=== PATIENT | male | born 1945 | race Caucasian/White ===

== ENCOUNTER 2017-03-12 09:29 | Inpatient (IN) | payer MEDICARE, OTHER ==
[~2017-03-12] VITALS: Ht 170.2 cm; Wt 121.0 kg
[2017-03-12] MEDS ORDERED: IBUP200T2 PO (10:01)
--- NOTE | 2017-03-14 11:19 | MH ---
cc: JAXON ROSARIO DC, ALEX MD KHANNA, ROHIT K. M.D. KANDAVANAM, RAJ MD DATE OF ADMISSION: 03/15/2017 ADMITTING DIAGNOSIS Lumbar degenerative disc disease. HISTORY OF PRESENT ILLNESS This is a 71-year-old male who initially presented to us in June 2016 with complaints of low back pain. He was seen for a follow-up in February 2017 with progressively worsening symptoms. He states he has had low back pain and leg pain for the last five years. He has been to pain management and has had three injections which did not help. He states the pain radiates into the left more than right leg and into the lateral thighs and posterior thigh. He states the pain does not extend much past the knees. He denies any paresthesias in his lower extremities. He states with walking he occasionally does not feel secure. He states he feels he has to lean forward to help with his pain. Walking more than a block is difficult for him. He states he has been urinating more frequently but denies any bowel or bladder incontinence. His pain improves with laying down. He states that the pain is affecting his life at this point, is unable to walk as far as he wants and his activity status has been restricted. Because of this he is requesting that we proceed with surgical intervention. PAST MEDICAL HISTORY Sleep apnea, uses a CPAP machine. PAST SURGICAL HISTORY 1. Tonsillectomy in 1952. 2. Hand surgery. 3. Cervical spine surgery in 2010. MEDICATIONS Current medication is Ibuprofen 400 mg q.6h. p.r.n. pain; this was stopped prior to surgical intervention. ALLERGIES PENICILLIN. SOCIAL HISTORY He drinks 0-2 drinks of alcohol per day. Denies any substance abuse. He was a former smoker, quit in 1984. FAMILY HISTORY Noncontributory. REVIEW OF SYSTEMS CONSTITUTIONAL: Denies any fever or chills. EARS, NOSE, AND THROAT: Positive for sinus drainage, hearing loss and tinnitus. CARDIOVASCULAR: Denies any chest pain or palpitations. RESPIRATORY: No cough or shortness of breath. GASTROINTESTINAL: No nausea, vomiting, abdominal pain. MUSCULOSKELETAL: Positive for low back pain and bilateral leg pain. NEUROLOGIC: No difficulty with speech or memory. INTEGUMENTARY: No rashes or pruritus. GENITOURINARY: No polyuria or polydipsia. HEMATOLOGIC: No bruising or bleeding tendencies. PHYSICAL EXAMINATION HEAD: Normocephalic, atraumatic. NECK: Supple. No carotid bruits heard on auscultation. LUNGS: Clear to auscultation bilaterally. HEART: Regular rate and rhythm, normal S1, S2. ABDOMEN: Soft, nontender. Positive bowel sounds. SKIN: No cyanosis or erythema. MUSCULOSKELETAL: He has 5/5 strength in the lower extremities. He has weakness in the right hamstring from a history of a torn hamstring. He ambulates without any assistive device. Lumbar extension exacerbates his pain. NEUROLOGIC: He is awake, alert and oriented. Cranial nerves II-XII appear grossly intact. His speech is fluent. Comprehension is good. IMAGING MRI of the lumbar spine reveals a grade I, L4-L5 anterolisthesis with pars defect and severe degenerative disc disease with disc height collapse along with facet arthropathy and severe foraminal stenosis. There is also severe L3-L4 degenerative disc disease with disc height collapse and moderate foraminal stenosis. IMPRESSION A 71-year-old male with history of chronic low back pain and failed conservative treatment measures and a very restricted activity status. He has severe L3-L4 and L4-L5 disc degeneration with complete disc height collapse along with a grade I/II spondylolisthesis with pars defect at L4-L5 as well as multilevel facet arthropathy and foraminal stenosis. PLAN We have discussed treatment options with the patient which include continued conservative treatment measures versus surgical intervention. The patient states that he has tried conservative treatment measures and he is currently miserable with this level of discomfort and he is requesting that we proceed with surgical intervention. We have discussed with him an L3-L4 and L4-L5 transforaminal interbody fusion with pedicle screw fixation. The procedure as well as the risk, benefit, alternative and recovery time were explained in great detail with the patient. We have discussed the risks involved with surgery include but are not limited to bleeding, infection, muscle weakness, voice hoarseness, difficulty swallowing, heart attack, stroke, blood clots, non-fusion scar tissue formation among others. The patient states that he understands the procedure as well as the risks involved and he is requesting that we proceed and is therefore scheduled accordingly. Dictated by: Elie Peterson PA-C MD GURJIT Crespo /10:44 AM /11:04 AM
[2017-03-15] MEDS ORDERED: INSULIN HUMAN REGULAR 1,000 UNITS/10 ML VIAL SQ PRN (06:45)
[2017-03-15] MEDS ORDERED: METOPROLOL TARTRATE 25 MG TAB PO PRN (06:45)
[2017-03-15] MEDS ORDERED: LACTATED RINGER'S 1000 ML IV PRN (06:45)
[2017-03-15] MEDS ORDERED: CHLORHEXIDINE GLUCONATE 2 % 1 PACK (2 CLOTHS) TOPICAL PRN (06:45)
[2017-03-15] MEDS ORDERED: SODIUM CHLORID 0.9% 500 ML IV PRN (06:45)
[2017-03-15] MEDS ORDERED: POVIDONE IODINE 5% (ANTISEPSIS KIT) 4 APPLICATIONS EACH NARE PRN (06:45)
[2017-03-15] MEDS ORDERED: SODIUM CHLOR 0.9% 1000 ML INJ 1,000 ML IV SCH (06:45)
[2017-03-15] MEDS ORDERED: VANCOMYCIN HCL 1000 MG ON-CALL/NS 250 ML IV SCH ×2 (06:45)
[2017-03-15 06:46] VITALS: BP 181/83; PULSE 71; RESP 18; TEMP 98.8; O2SAT 97
[2017-03-15] MEDS ORDERED: THROMBIN (TOPICAL) 5,000 UNIT VIAL ONE ×3 (07:36→11:31)
[2017-03-15] MEDS ORDERED: BUPIVACAINE/EPINEPHRINE 0.5% 50 ML VIAL ONE (07:36)
[2017-03-15] MEDS ORDERED: GELFOAM SIZE 100 ONE (07:36)
[2017-03-15] MEDS ORDERED: ACETAMINOPHEN 1000 MG/100 ML VIAL IV ONE (07:42)
[2017-03-15] MEDS ORDERED: FAMOTIDINE 20 MG/2 ML VIAL ONE (07:43)
[2017-03-15] MEDS ORDERED: fentaNYL CITRATE 250 MCG/5 ML AMP ONE (07:43)
[2017-03-15] MEDS ORDERED: MIDAZOLAM HCL 2 MG/2 ML VIAL ONE (07:43)
[2017-03-15] MEDS ORDERED: ARTIFICIAL TEARS OPTH OINT 3.5 APPLIC/3.5 GM TUBO ONE (07:43)
[2017-03-15] MEDS: VANCOMYCIN HCL 1000 MG VIAL ONE ×2 (09:30→12:09)
[2017-03-15] MEDS ORDERED: ePHEDrine/NS 25 MG/5 ML SYR IV ONE ×2 (12:00→13:42)
[2017-03-15] MEDS ORDERED: DO NOT ADM ANY ANTICOAGULANT DRUGS PRN (12:34)
[2017-03-15] MEDS ORDERED: CALCIUM GLUCONATE INJ 1 GM in SODIUM CHLORIDE 0.9% INJ 100 ML IV PRN (12:45)
[2017-03-15] MEDS ORDERED: POTASSIUM CHLOR 20 MEQ PREMIX 100 ML IV PRN (12:45)
[2017-03-15] MEDS ORDERED: RESP: ALBUTEROL 2.5 MG/3 ML NEB (PRN) NEB (12:45)
[2017-03-15] MEDS ORDERED: ZOLPIDEM TARTRATE 5 MG TAB PO PRN (12:45)
[2017-03-15] MEDS ORDERED: MENTHOL LOZENGE BUCCAL PRN (12:45)
[2017-03-15] MEDS ORDERED: NALOXONE HCL 0.4 MG/ML AMP IV PRN (12:45)
[2017-03-15] MEDS ORDERED: METOCLOPRAMIDE HCL 10 MG/2 ML VIAL IVS PRN (12:45)
[2017-03-15] MEDS ORDERED: ALUMINUM/MAGNESIUM/SIMETH 30 ML CUP PO PRN (12:45)
[2017-03-15] MEDS ORDERED: MAGNESIUM SULFATE INJ 2 GM in SODIUM CHLORIDE 0.9% INJ 100 ML IV PRN (12:45)
[2017-03-15] MEDS ORDERED: diphenhydrAMINE HCL 50 MG/ML VIAL IV PRN (12:45)
[2017-03-15] MEDS ORDERED: ACETAMINOPHEN/HYDROcodone 325 MG/10 MG TAB PO PRN (12:45)
[2017-03-15] MEDS ORDERED: ACETAMINOPHEN 325 MG TAB PO PRN (12:45)
[2017-03-15] MEDS ORDERED: cloNIDine HCL 0.1 MG TAB PO PRN (12:45)
[2017-03-15] MEDS ORDERED: SODIUM CHLORIDE 0.9% FLUSH 10 ML FLUSH IV FLUSH PRN (12:45)
--- NOTE | 2017-03-15 12:57 | PD.OP ---
MD Nate Ayon MD Operative Report Date of Surgery: Mar 15, 2017 Preoperative Diagnosis: Intractable low back pain with L3 and L4 radiculopathy; severe L3-4 and L4-5 degenerative disc disease with disc height collapse and facet arthropathy with foraminal stenosis; grade 1/2 L4-5 isthmic spondylolisthesis Postoperative Diagnosis: Same Anesthesia: Gen. endotracheal by Jewell Padilla Surgeon: Jon Jernigan M.D. Supervisor Grips(s): Ashlie Watson Operation and Findings: Following initiation of general endotracheal anesthesia, the patient had a Acosta catheter placed along with sequential compression devices. A gram of vancomycin was administered intravenously and he was turned in a prone position on a Angel frame, on a Esteban table, and all pressure points adequately padded. The lumbosacral region was then prepped with Chloraprep and sterilely draped with Ioban along the usual sterile draping. A left paraspinal skin incision was then made extending from the L3-L5 levels after infiltrating the skin with 0.5% Marcaine with epinephrine solution extending down through the fascia. The muscle fibers were split using avascular fatty plane and detached from the underlying facets, transverse process and lateral portion of lamina on the right side and a self-retaining retractor used for exposure. Intraoperative fluoroscopy was also used for level of confirmation along with microscope magnification for further dissection. There was significant facet and ligamentum flavum hypertrophy noted at the L3-4 and L4-5 levels. Left L3-4 and L4-5 facets were resected with a drill bit along with the lamina and there was severe foraminal and lateral recess stenosis from hypertrophied ligamentum flavum and facet which were decompressed bilaterally through the usual lateral approach. There was significant disc height collapse along with disc protrusion also leading to the foraminal stenosis. There was also high-grade spondylolisthesis at the L4-5 level with pars defect noted. Epidural hemostasis was achieved with bipolar cautery and Gelfoam with thrombin. Subsequently entered into the disc space at the L3-4 and L4-5 levels with a #15 blade and dorcas were used for discectomy. I then placed PEEK cages packed with local autograft bone and more local autograft bone was packed adjacent to the cage in each interspace for added interbody fusion. With placement of the cages, I was able to distract the interspaces and opened up the foramen further bilaterally at both levels. Subsequently in order to facilitate the fusion and provide stabilization, pedicle screw fixation was undertaken using Davenport spine screws on entry point at the left L3, L4 and L5 levels at the junction of the transverse process and facet. Subsequently using AP and lateral fluoroscopy tap and screw placement. The screws were then connected with a belkys and locked in place with caps. The construct appeared very secure at this point. The area was then copiously irrigated with Vancomycin solution and powder. The retractors were removed and the bipolar cautery used for hemostasis. The muscle fascia was then approximated using 2-0 Vicryl interrupted stitches and then 3-0 Vicryl subcuticular stitches also placed in interrupted fashion. The final skin closure was completed with dany. A sterile dressing was then applied. The patient then turned in supine position, extubated and taken to recovery room. There were no intraoperative complications. All sponge and needle counts were correct at the end of procedure. Estimated blood loss about 200 ml. Jon Jernigan MD Mar 15, 2017 12:57
[2017-03-15] MEDS ORDERED: *morphine SULFATE 8 MG/ML PERIprocedure ONLY ONE (13:08)
[2017-03-15] MEDS: MORPHINE SULFATE 30 MG/30 ML PCA IV SCH (13:35)
[2017-03-15] MEDS: NS + KCL 20 MEQ INJ 1,000 ML IV SCH ×2 (13:35→23:02)
[2017-03-15] MEDS ORDERED: PROPOFOL 200 MG/20 ML AMP IV ONE (13:41)
[2017-03-15] MEDS ORDERED: LACTATED RINGER'S 1000 ML INJ 1,000 ML IV ONE (13:42)
[2017-03-15] MEDS ORDERED: SODIUM CHLORID 0.9% 500 ML INJ 500 ML IV ONE (13:42)
[2017-03-15] MEDS ORDERED: ONDANSETRON HCL 4 MG/2 ML VIAL IV PUSH ONE (13:42)
[2017-03-15] MEDS ORDERED: PHENYLEPH/NS 1000 MCG/10 ML SYR IV ONE (13:42)
[2017-03-15 13:57] LABS: AUTOMATED NEUTROPHIL # 12.9 TH/MM3 (1.8-7.7); BASOPHIL % 0.1 % (0.0-2.0); HEMATOCRIT 39.8 % (39.0-51.0); HEMO FLAGS DIFF FINAL; LYMPH % 4.5 % (9.0-44.0); LYMPHOCYTE # 0.6 TH/MM3 (1.0-4.8); MEAN CELL VOLUME 87.9 FL (80.0-100.0); MEAN CORPUSCULAR HEMOGLOBIN 30.5 PG (27.0-34.0); MEAN CORPUSCULAR HGB CONC 34.7 % (32.0-36.0); MONO % 1.1 % (0.0-8.0); NEUT % 94.3 % (16.0-70.0); PLATELET COUNT 227 TH/MM3 (150-450); RED BLOOD COUNT 4.53 MIL/MM3 (4.50-5.90); RED CELL DISTRIBUTION WIDTH 13.3 % (11.6-17.2); WHITE BLOOD COUNT 13.7 TH/MM3 (4.0-11.0)
[2017-03-15 14:14] LABS: BICARBONATE 26.4 MEQ/L (21.0-32.0); POTASSIUM 3.9 MEQ/L (3.5-5.1)
--- NOTE | 2017-03-15 15:19 | RADRPT ---
EXAM DATE/TIME: 03/15/2017 08:05 [facility] COMPARISON: No previous studies available for comparison. INDICATIONS : Fusion L3,L4 and L4,L5 with sctrews and belkys placement. MEDICAL HISTORY : None. SURGICAL HISTORY : Fusion, cervical. ENCOUNTER: Initial ACUITY: 1 day PAIN SCORE: Non-responsive. LOCATION: Lumbar spine. FINDINGS: Status post fusion of the lower lumbar spine at L3-4 and L4-5 on the left side. There is mild grade 1 anterior spondylolisthesis of L4 over L5. The hardware is grossly intact. Good position and alignmen t of the pedicular screws. CONCLUSION: Status post lumbar fusion on the left side at L3-4 and L4-5. Travis Chapman MD on March 15, 2017 at 15:16 Board Certified Radiologist. This report was verified electronically.
[2017-03-15 16:00] VITALS: BP 168/78; PULSE 75; RESP 16; TEMP 96.8; O2SAT 95
[2017-03-15 16:45] VITALS: O2SAT 93
[2017-03-15] MEDS: VANCOMYCIN INJ 1,000 MG in SODIUM CHLOR 0.9% 250 ML INJ 250 ML IV SCH (18:43)
[2017-03-15 20:00] VITALS: BP 172/82; PULSE 72; RESP 18; TEMP 96.7; O2SAT 93; O2SAT 98
[2017-03-15] MEDS: SODIUM CHLORIDE 0.9% FLUSH 10 ML FLUSH IV FLUSH SCH (20:39)
[2017-03-15] MEDS: DOCUSATE SODIUM 100 MG CAP PO SCH (20:39)
[2017-03-15] MEDS: ONDANSETRON HCL 4 MG/2 ML VIAL IV PRN (20:59)
[2017-03-15] MEDS: PCA - TOTAL MG MORPHINE DELIVERED PER SHIFT SCH (22:00)
[2017-03-16 00:10] VITALS: BP 172/79; PULSE 78; RESP 18; TEMP 96.6; O2SAT 96
[2017-03-16 04:15] VITALS: BP 151/70; PULSE 73; RESP 17; TEMP 96.1; O2SAT 95
[2017-03-16] MEDS: ONDANSETRON HCL 4 MG/2 ML VIAL IV PRN ×2 (05:05→17:25)
[2017-03-16] MEDS: PCA - TOTAL MG MORPHINE DELIVERED PER SHIFT SCH ×3 (05:06→21:17)
[2017-03-16] MEDS: VANCOMYCIN INJ 1,000 MG in SODIUM CHLOR 0.9% 250 ML INJ 250 ML IV SCH (06:43)
[2017-03-16] MEDS: MORPHINE SULFATE 30 MG/30 ML PCA IV SCH (06:44)
[2017-03-16 08:00] VITALS: BP 158/75; PULSE 71; RESP 16; TEMP 97.3; O2SAT 98
[2017-03-16] MEDS: DOCUSATE SODIUM 100 MG CAP PO SCH ×2 (09:07→21:16)
[2017-03-16] MEDS: PANTOPRAZOLE SOD 40 MG DELAYED RELEASE TAB PO SCH (09:07)
[2017-03-16] MEDS: POLYETHYLENE GLYCOL 17 GM PKG PO SCH (09:07)
[2017-03-16] MEDS: NS + KCL 20 MEQ INJ 1,000 ML IV SCH (09:08)
[2017-03-16] MEDS: SODIUM CHLORIDE 0.9% FLUSH 10 ML FLUSH IV FLUSH SCH ×2 (09:24→21:17)
[2017-03-16 10:40] VITALS: O2SAT 97
--- NOTE | 2017-03-16 10:43 | HHI.NSPN ---
History Interval History 71-year-old gentleman who is now postoperative day #1 status post L3-4 and L4-5 TLIF. Relates incisional back pain control with COAL WEIGHER and no lower extremity radicular symptoms noted. Review of Systems General: Positive for: insomnia, Negative for: fever, chills Respiratory: Negative for: shortness of breath, cough, sputum Cardiovascular: Negative for: chest pain, palpitations, orthopnea Gastrointestinal: Positive for: nausea, Negative for: vomitting, diarrhea, constipation Genitourinary: Negative for: urinary burning, urinary frequency, urinary urgency Exam Results Vital Signs Date Time Temp Pulse Resp B/P Pulse Ox O2 Delivery O2 Flow Rate FiO2 03/16/17 06:44 18 03/16/17 04:15 96.1 73 151/70 95 03/15/17 20:00 Nasal Cannula 3.00 Intake and Output 03/15/17 03/15/17 03/16/17 08:00 16:00 00:00 Intake Total 2195 ml 240 ml Output Total 625 ml 450 ml Balance 1570 ml -210 ml Physical Examination Chest clear bilaterally Heart regular rate rhythm Abdomen soft and nontender diminished bowel sounds Acosta catheter in place Lumbar incision dressing clean and dry dany in place Moves lower extremities with 5 out of 5 strength Lab, Micro, Other Results Laboratory Tests Test 03/15/17 03/15/17 13:30 13:45 Sodium Level 139 Potassium Level 3.9 Chloride Level 104 Carbon Dioxide Level 26.4 Anion Gap 9 Blood Urea Nitrogen 12 Creatinine 1.11 Estimat Glomerular Filtration 65 Rate Random Glucose 146 Calcium Level 8.1 Magnesium Level 2.0 White Blood Count 13.7 Red Blood Count 4.53 Hemoglobin 13.8 Hematocrit 39.8 Mean Corpuscular Volume 87.9 Mean Corpuscular Hemoglobin 30.5 Mean Corpuscular Hemoglobin 34.7 Concent Red Cell Distribution Width 13.3 Platelet Count 227 Mean Platelet Volume 7.3 Neutrophils (%) (Auto) 94.3 Lymphocytes (%) (Auto) 4.5 Monocytes (%) (Auto) 1.1 Eosinophils (%) (Auto) 0.0 Basophils (%) (Auto) 0.1 Neutrophils # (Auto) 12.9 Lymphocytes # (Auto) 0.6 Monocytes # (Auto) 0.2 Eosinophils # (Auto) 0.0 Basophils # (Auto) 0.0 CBC Comment DIFF FINAL Differential Comment Medical Decision Making Impression and Plan 8 year-old gentleman postop day #1 status post L3-4 and L4-5 TLIF. Overall he is doing well with incisional pain control with the COAL WEIGHER and no lower extremity symptoms. Continue with pain control and discontinue Acosta. Out of bed with physical therapy. SCDs for DVT prophylaxis and will start chemical DVT prophylaxis tomorrow. Jon Jernigan MD Mar 16, 2017 10:43
[2017-03-16 12:00] VITALS: BP 154/65; PULSE 66; RESP 16; TEMP 96.4; O2SAT 94
[2017-03-16 19:00] VITALS: BP 151/70; PULSE 73; RESP 18; TEMP 98.6; O2SAT 96
[2017-03-16] MEDS: ACETAMINOPHEN/HYDROcodone 325 MG/10 MG TAB PO PRN (21:16)
[2017-03-17] VITALS (7 sets, daily range): BP systolic 138–152; BP diastolic 63–74; PULSE 70–77; RESP 16–18; TEMP 97–98.1; O2SAT 94–97
[2017-03-17] MEDS: ACETAMINOPHEN/HYDROcodone 325 MG/10 MG TAB PO PRN ×6 (02:51→23:32)
[2017-03-17] MEDS: PCA - TOTAL MG MORPHINE DELIVERED PER SHIFT SCH ×3 (05:37→22:00)
[2017-03-17] MEDS: DOCUSATE SODIUM 100 MG CAP PO SCH ×2 (08:33→20:32)
[2017-03-17] MEDS: PANTOPRAZOLE SOD 40 MG DELAYED RELEASE TAB PO SCH (08:33)
[2017-03-17] MEDS: SODIUM CHLORIDE 0.9% FLUSH 10 ML FLUSH IV FLUSH SCH ×2 (08:34→20:35)
[2017-03-17] MEDS: POLYETHYLENE GLYCOL 17 GM PKG PO SCH (08:34)
[2017-03-17] MEDS: MAGNESIUM HYDROXIDE SUSP 30 ML CUP PO PRN (08:34)
[2017-03-17] MEDS: NS + KCL 20 MEQ INJ 1,000 ML IV SCH (08:44)
[2017-03-17] MEDS: ENOXAPARIN SODIUM 40 MG/0.4 ML SYRINGE SQ SCH (20:32)
--- NOTE | 2017-03-17 21:00 | HHI.NSPN ---
History Chief Complaint: moderate low back pain Interval History 71-year-old male status post L3-4-5 laminectomy interbody fusion with posterior instrumentation 03/15/17. 03/17/17: Out of bed with assistance and physical therapy. Ambulating 100 feet today. 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 Tolerating diet well Exam Results Vital Signs Date Time Temp Pulse Resp B/P Pulse Ox O2 Delivery O2 Flow Rate FiO2 03/17/17 20:00 98.1 75 18 141/65 96 03/17/17 08:02 21 03/16/17 20:39 HOME CPAP 03/16/17 10:40 2.00 Intake and Output 03/16/17 03/16/17 03/17/17 08:00 16:00 00:00 Intake Total 240 ml 942 ml 480 ml Output Total 450 ml 600 ml Balance -210 ml 942 ml -120 ml Physical Examination Sitting up in chair. Awake and alert oriented conversant and appropriate No significant lower extremity edema Respirations clear, nonlabored Pulse regular Sensation intact light touch lower extremities Strength normal major flexion and extension groups right and left lower extremity Lumbar brace in place fitting well Medical Decision Making Impression and Plan Impression: Doing well postoperatively. Pain now well controlled with oral medications. Ambulated 100 feet today. No lower extremity deficits Plan: Continue physical therapy Continue to wean medications Discussed with patient and family. Plan discharge home 03/19/17 Sterling Taveras MD Mar 17, 2017 21:00
[2017-03-17] MEDS: CYCLOBENZAPRINE HCL 10 MG TAB PO PRN (23:32)
[2017-03-18] VITALS (7 sets, daily range): BP systolic 143–182; BP diastolic 65–81; PULSE 65–82; RESP 17–18; TEMP 95.6–99.7; O2SAT 93–99
[2017-03-18] MEDS: ACETAMINOPHEN/HYDROcodone 325 MG/10 MG TAB PO PRN ×5 (03:51→22:34)
[2017-03-18] MEDS: PCA - TOTAL MG MORPHINE DELIVERED PER SHIFT SCH ×3 (06:00→22:00)
[2017-03-18] MEDS: NS + KCL 20 MEQ INJ 1,000 ML IV SCH (08:44)
[2017-03-18] MEDS: DOCUSATE SODIUM 100 MG CAP PO SCH ×2 (08:46→19:57)
[2017-03-18] MEDS: PANTOPRAZOLE SOD 40 MG DELAYED RELEASE TAB PO SCH (08:46)
[2017-03-18] MEDS: SODIUM CHLORIDE 0.9% FLUSH 10 ML FLUSH IV FLUSH SCH ×2 (08:47→19:58)
[2017-03-18] MEDS: POLYETHYLENE GLYCOL 17 GM PKG PO SCH (08:47)
--- NOTE | 2017-03-18 13:55 | HHI.NSPN ---
History Chief Complaint: moderate low back pain Interval History 71-year-old male status post L3-4-5 laminectomy interbody fusion with posterior instrumentation 03/15/17. 03/17/17: Out of bed with assistance and physical therapy. Ambulating 100 feet today. 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 Tolerating diet well Exam Results Vital Signs Date Time Temp Pulse Resp B/P Pulse Ox O2 Delivery O2 Flow Rate FiO2 03/18/17 12:02 95.6 68 18 182/77 95 03/17/17 08:02 21 03/16/17 20:39 HOME CPAP 03/16/17 10:40 2.00 Intake and Output 03/17/17 03/17/17 03/18/17 08:00 16:00 00:00 Intake Total 240 ml 720 ml 480 ml Output Total 750 ml 800 ml 550 ml Balance -510 ml -80 ml -70 ml Physical Examination Sitting up in chair. Awake and alert oriented conversant and appropriate No significant lower extremity edema Respirations clear, nonlabored Pulse regular Sensation intact light touch lower extremities Strength normal major flexion and extension groups right and left lower extremity Lumbar brace in place fitting well Medical Decision Making Impression and Plan Impression: Mr. Zavala continues to do well postoperatively. Pain well controlled with oral medications. Ambulated 100 feet yesterday in physical therapy and able to mobilize out of bed with minimal assistance today. No lower extremity deficits Plan: Continue physical therapy Continue to wean medications Discussed with patient and family again today. Plan discharge home 03/19/17 Sterling Taveras MD Mar 18, 2017 13:55
[2017-03-18] MEDS: MAGNESIUM HYDROXIDE SUSP 30 ML CUP PO PRN (16:15)
[2017-03-18] MEDS: ENOXAPARIN SODIUM 40 MG/0.4 ML SYRINGE SQ SCH (19:57)
[2017-03-18] MEDS: CYCLOBENZAPRINE HCL 10 MG TAB PO PRN (22:34)
[2017-03-19 00:08] VITALS: BP 162/70; PULSE 68; RESP 17; TEMP 97; O2SAT 96
[2017-03-19] MEDS: PCA - TOTAL MG MORPHINE DELIVERED PER SHIFT SCH ×3 (06:00→22:00)
[2017-03-19] MEDS: ACETAMINOPHEN/HYDROcodone 325 MG/10 MG TAB PO PRN ×4 (06:40→23:45)
[2017-03-19 08:00] VITALS: BP 155/77; PULSE 68; RESP 16; TEMP 97.1; O2SAT 95
[2017-03-19] MEDS: POLYETHYLENE GLYCOL 17 GM PKG PO SCH (08:09)
[2017-03-19] MEDS: DOCUSATE SODIUM 100 MG CAP PO SCH ×2 (08:09→19:10)
[2017-03-19] MEDS: MAGNESIUM HYDROXIDE SUSP 30 ML CUP PO PRN (08:09)
[2017-03-19] MEDS: PANTOPRAZOLE SOD 40 MG DELAYED RELEASE TAB PO SCH (08:09)
[2017-03-19] MEDS: NS + KCL 20 MEQ INJ 1,000 ML IV SCH (08:14)
[2017-03-19] MEDS: SODIUM CHLORIDE 0.9% FLUSH 10 ML FLUSH IV FLUSH SCH ×2 (08:14→19:10)
--- NOTE | 2017-03-19 09:40 | HHI.NSPN ---
(Elie Peterson) History Chief Complaint: low back incisional pain (Elie Peterson) Interval History 71-year-old male status post L3-4-5 laminectomy interbody fusion with posterior instrumentation 03/15/17. 03/17/17: Out of bed with assistance and physical therapy. Ambulating 100 feet today. 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 Tolerating diet well 03/19/17: Pt doing well. He has low back incisional pain. No radiculopathy or paresthesias in LEs. No chest pain or sob. Pt constipated but passing flatulence and no abdominal pain. (Elie Peterson) Review of Systems General: Negative for: fever, chills, insomnia Respiratory: Negative for: shortness of breath, cough, sputum Cardiovascular: Negative for: chest pain Gastrointestinal: Positive for: constipation, Negative for: nausea, vomitting , diarrhea (Elie Peterson) Exam Results Vital Signs Date Time Temp Pulse Resp B/P Pulse Ox O2 Delivery O2 Flow Rate FiO2 03/19/17 08:00 97.1 68 16 155/77 95 03/17/17 08:02 21 03/16/17 20:39 HOME CPAP 03/16/17 10:40 2.00 Intake and Output 03/18/17 03/18/17 03/18/17 07:59 15:59 23:59 Intake Total 240 ml 960 ml 240 ml Output Total 650 ml Balance -410 ml 960 ml 240 ml (Elie Peterson) Physical Examination Resp: CTA bilaterally Heart: NSR no murmurs Abd: Sitting up in chair with lumbar brace on. Skin: No cyanosis or erythema Muscle: Moves LEs with good strength. Sitting up in chair. Neuro: Pt awake and alert. Follows commands well. Speech clear and appropriate. (Elie Peterson) Lab, Micro, Other Results 03/18/17 03/18/17 03/19/17 14:59 22:59 06:59 Intake Total 960 ml 240 ml 240 ml Output Total 350 ml 1200 ml Balance 610 ml 240 ml -960 ml Intake Oral 960 ml 240 ml 240 ml Output Urine Total 350 ml 1200 ml # Voids 5 1 # Bowel Movements 0 0 (Elie Peterson) Medical Decision Making Impression and Plan A: 71 y/o M s/p L3/L4 and L4/L5 TLIF with cage and pedicle screw fixation. P: Discussed with RN will give Dulcolax NH now and if no BM a Fleets at noon. Anticipate D/C after bm. (Elie Peterson) Attending Statement The exam, history, and the medical decision-making described in the above note were completed with the assistance of the mid-level provider. I reviewed and agree with the findings presented. I attest that I had a [id number] encounter with the patient on the same day, and personally performed and documented my assessment and findings in the medical record. (Jon Jernigan MD) Elie Peterson Mar 19, 2017 09:40 Jon Jernigan MD Mar 19, 2017 13:03
[2017-03-19] MEDS ORDERED: CYCL1TAB29 PO (09:44)
[2017-03-19] MEDS ORDERED: HYDR-3583 PO (09:44)
[2017-03-19] MEDS ORDERED: SOD PHOSPHATE/SOD BIPHOSPHATE (ADULT) ENEMA 133ML RECTAL ONE (09:45)
[2017-03-19] MEDS ORDERED: BISACODYL 10 MG SUPP RECTAL ONE (09:45)
[2017-03-19 11:42] VITALS: BP 159/73; PULSE 68; RESP 16; TEMP 97.1; O2SAT 97
[2017-03-19] MEDS ORDERED: SOD PHOSPHATE/SOD BIPHOSPHATE (ADULT) ENEMA 133ML RECTAL PRN (12:00)
[2017-03-19 16:10] VITALS: BP 179/76; PULSE 72; RESP 16; TEMP 97.4; O2SAT 96
--- NOTE | 2017-03-19 17:12 | RADRPT ---
EXAM DATE/TIME: 03/19/2017 16:28 [facility] COMPARISON: No previous studies available for comparison. INDICATIONS : Ileus. Abdominal discomfort and distention. MEDICAL HISTORY : None. SURGICAL HISTORY : Fusion, cervical. Fusion, lumbar. ENCOUNTER: Initial ACUITY: 4 - 6 days PAIN SCORE: Non-responsive. LOCATION: Bilateral abdomen FINDINGS: The bowel gas is nonspecific without any signs of obstruction or free air. There are post surgical ch anges in the lower lumbosacral spine. Punctate calcifications are present overlapping both kidneys qu estionable for tiny stones. No definite free air is identified for technique. CONCLUSION: Nonspecific bowel gas. Eric Walker MD on March 19, 2017 at 17:10 Board Certified Radiologist. This report was verified electronically.
[2017-03-19] MEDS: ENOXAPARIN SODIUM 40 MG/0.4 ML SYRINGE SQ SCH (19:10)
[2017-03-19] MEDS: ONDANSETRON HCL 4 MG/2 ML VIAL IV PRN (19:10)
[2017-03-19 19:40] VITALS: BP 160/67; PULSE 68; RESP 17; TEMP 96.5; O2SAT 98
[2017-03-19] MEDS: CYCLOBENZAPRINE HCL 10 MG TAB PO PRN (23:45)
[2017-03-19 23:50] VITALS: BP 158/72; PULSE 67; RESP 17; TEMP 96.5; O2SAT 95
[2017-03-20] MEDS: ACETAMINOPHEN/HYDROcodone 325 MG/10 MG TAB PO PRN ×2 (04:12→11:21)
[2017-03-20 04:25] VITALS: BP 147/64; PULSE 68; RESP 17; TEMP 97.2; O2SAT 95
[2017-03-20] MEDS: PCA - TOTAL MG MORPHINE DELIVERED PER SHIFT SCH (06:00)
[2017-03-20] MEDS: POLYETHYLENE GLYCOL 17 GM PKG PO SCH (06:29)
[2017-03-20 08:00] VITALS: BP 164/77; PULSE 65; RESP 18; TEMP 97.5; O2SAT 95
[2017-03-20] MEDS: NS + KCL 20 MEQ INJ 1,000 ML IV SCH (08:44)
--- NOTE | 2017-03-20 08:55 | HHI.NSPN ---
History Chief Complaint: low back incisional pain Interval History 71-year-old male status post L3-4-5 laminectomy interbody fusion with posterior instrumentation 03/15/17. 03/17/17: Out of bed with assistance and physical therapy. Ambulating 100 feet today. 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 Tolerating diet well 03/19/17: Pt doing well. He has low back incisional pain. No radiculopathy or paresthesias in LEs. No chest pain or sob. Pt constipated but passing flatulence and no abdominal pain. 03/20/17: Pt awake and alert. Sitting up in chair. States had small pellet stool. No abdominal pain. Review of Systems General: Negative for: fever, chills, insomnia Respiratory: Negative for: shortness of breath, cough, sputum Cardiovascular: Negative for: chest pain Gastrointestinal: Positive for: constipation (Passing flatulence. Small pellet stool.), Negative for: nausea, vomitting, diarrhea Exam Results Vital Signs Date Time Temp Pulse Resp B/P Pulse Ox O2 Delivery O2 Flow Rate FiO2 03/20/17 08:00 97.5 65 18 164/77 95 03/19/17 19:00 Room Air 03/17/17 08:02 21 03/16/17 10:40 2.00 Intake and Output 03/19/17 03/19/17 03/20/17 08:00 16:00 00:00 Intake Total 240 ml 360 ml 240 ml Output Total 1200 ml 400 ml Balance -960 ml 360 ml -160 ml Physical Examination Resp: CTA bilaterally Heart: NSR no murmurs Abd: Sitting up in chair with lumbar brace on. Abdomen soft. Positive bs. Skin: No cyanosis or erythema. No signs of infection or complication. Mccloud in place. New bandage applied. Muscle: Moves LEs with good strength. Sitting up in chair. Neuro: Pt awake and alert. Follows commands well. Speech clear and appropriate. Cervical AP and Lateral x-rays reviewed. Cervical fractures not well visualized on x-ray. Alignment of cervical spine stable. Lab, Micro, Other Results Last Impressions Abdomen X-Ray 03/19/17 0000 Signed Impressions: Service Date/Time: Sunday, March 19, 2017 16:28 - CONCLUSION: Nonspecific bowel gas. KVerónica Walker MD Lumbar Spine X-Ray 03/15/17 0000 Signed Impressions: Service Date/Time: March 08:05 - CONCLUSION: Status post lumbar fusion on the left side at L3-4 and L4-5. Travis Chapman MD 03/19/17 03/19/17 03/20/17 15:00 23:00 07:00 Intake Total 360 ml 240 ml 480 ml Output Total 400 ml 300 ml Balance 360 ml -160 ml 180 ml Intake Oral 360 ml 240 ml 480 ml Output Urine Total 400 ml 300 ml # Voids 2 # Bowel Movements 1 0 0 Medical Decision Making Impression and Plan A: 71 y/o M s/p L3/L4 and L4/L5 TLIF with cage and pedicle screw fixation. P: Give another fleets now. Anticipate D/C today. Elie Peterson Mar 20, 2017 08:55
[2017-03-20] MEDS: SODIUM CHLORIDE 0.9% FLUSH 10 ML FLUSH IV FLUSH SCH (09:00)
[2017-03-20] MEDS ORDERED: amLODIPine BESYLATE 5 MG TAB PO ONE (09:00)
[2017-03-20] MEDS ORDERED: LACTULOSE SYRUP 20 GM/30 ML CUP PO ONE (10:00)
[2017-03-20] MEDS: PANTOPRAZOLE SOD 40 MG DELAYED RELEASE TAB PO SCH (11:21)
[2017-03-20] MEDS: DOCUSATE SODIUM 100 MG CAP PO SCH (11:21)
== END 2017-03-20 12:00 | disposition home or self-care (01) | DRG 460 ==
LOC: HSDI 03-15 05:59 → EDUNIT# 03-15 08:30 → N06B 03-15 15:49 → UNDODISIN 03-19 18:48
PROVIDERS: ADMIT Neurological Surgery; ATTEND Neurological Surgery
PROC: 0QN00ZZ Release Lumbar Vertebra, Open Approach (ICD-10-PCS; 2017-03-15)
PROC: 0SB20ZZ Excision of Lumbar Vertebral Disc, Open Approach (ICD-10-PCS; 2017-03-15)
PROC: 0SG10AJ Fusion of 2 or more Lumbar Vertebral Joints with Interbody Fusion Device, Posterior Approach, Anterior Column, Open Approach (ICD-10-PCS; principal; 2017-03-15 07:59)
DX: M51.16 Intervertebral disc disorders with radiculopathy, lumbar region (principal); Z68.41 Body mass index [BMI] 40.0-44.9, adult; G47.30 Sleep apnea, unspecified; M48.06 Spinal stenosis, lumbar region; M43.16 Spondylolisthesis, lumbar region; E66.01 Morbid (severe) obesity due to excess calories; Z87.891 Personal history of nicotine dependence
CPT/HCPCS: 72100; 74000; 76000; 80048; 83735; 85025; 86850; 86900; 86901; 86920; 94150; C1713; J0131; J1650; J2250; J2270; J2370; J2405; J3010; J3370; J3480; J7040; J7050; J7120; L0484

== ENCOUNTER → 2017-03-12 | Outpatient (CLI) | payer MEDICARE, OTHER ==
[~2017-03-12] MED LIST: CYCL1TAB29 PO; HYDR-3583 PO; IBUP200T2 PO; IBUP400T20 PO
--- NOTE | 2017-03-12 11:13 | RADRPT ---
EXAM DATE/TIME: 03/12/2017 10:53 [facility] COMPARISON: No previous studies available for comparison. INDICATIONS : Evaluate for pnuemonia, pnuemothorax or communicable disease. Pre-op Lumbar surgery. MEDICAL HISTORY : None. SURGICAL HISTORY : Cervical fusion ENCOUNTER: Initial ACUITY: 1 day PAIN SCORE: 0/10 LOCATION: Bilateral chest FINDINGS: PA and lateral views of the chest demonstrate the lungs to be symmetrically aerated without evidence of mass, infiltrate or effusion. The cardiomediastinal contours are unremarkable. Osseous structure s are intact. CONCLUSION: No acute disease. Nikhil Dawson MD FACR on March 12, 2017 at 11:10 Board Certified Radiologist. This report was verified electronically.
[2017-03-12 11:25] LABS: AUTOMATED NEUTROPHIL # 5.6 TH/MM3 (1.8-7.7); BASOPHIL # 0.1 TH/MM3 (0-0.2); BASOPHIL % 0.6 % (0.0-2.0); EOSINOPHIL # 0.2 TH/MM3 (0-0.4); EOSINOPHIL % 1.7 % (0.0-4.0); HEMATOCRIT 41.6 % (39.0-51.0); HEMO FLAGS DIFF FINAL; LYMPH % 29.3 % (9.0-44.0); LYMPHOCYTE # 2.7 TH/MM3 (1.0-4.8); MEAN CORPUSCULAR HEMOGLOBIN 31.3 PG (27.0-34.0); MEAN CORPUSCULAR HGB CONC 35.5 % (32.0-36.0); NEUT % 59.4 % (16.0-70.0); PLATELET COUNT 232 TH/MM3 (150-450); RED BLOOD COUNT 4.72 MIL/MM3 (4.50-5.90); RED CELL DISTRIBUTION WIDTH 13.3 % (11.6-17.2); WHITE BLOOD COUNT 9.4 TH/MM3 (4.0-11.0)
[2017-03-12 11:27] LABS: BLOOD, URINE NEG (NEG); COMMENT (UR) CULT NOT INDICATED; CULTURE IF INDICATED CULT NOT INDICATED; GLUCOSE,URINE NEG (NEG); KETONE, URINE NEG (NEG); NITRITE,URINE NEG (NEG); PH, URINE 8.5 (5.0-8.5); SQUAMOUS EPITHELIAL CELL URINE <1 /hpf (0-5); URINE COLOR YELLOW (YELLW/STRAW)
[2017-03-12 11:38] LABS: APTT (PATIENT) 28.5 SEC (24.3-30.1); PROTHROMBIN TIME - PATIENT 10.7 SEC (9.8-11.6)
[2017-03-12 11:58] LABS: ALKALINE PHOSPHATASE 73 U/L (45-117); ALT (GPT) 23 U/L (12-78); TOTAL BILIRUBIN ADULT 0.5 MG/DL (0.2-1.0)
[2017-03-12 12:10] LABS: ANION GAP 5 MEQ/L (5-15); AST (GOT) 21 U/L (15-37); BICARBONATE 31.2 MEQ/L (21.0-32.0); BLOOD UREA NITROGEN 11 MG/DL (7-18); CHLORIDE 105 MEQ/L (98-107); GLOMERULAR FILTRATION RATE 93 ML/MIN (>89); GLUCOSE,FASTING 88 MG/DL (74-99); SODIUM (NA) 141 MEQ/L (136-145)
--- NOTE | 2017-03-12 14:10 | EKG ---
Date Performed: 03/12/2017 Time Performed: 09:56:15 PTAGE: 71 years EKG: Sinus rhythm WITH FIRST DEGREE AV BLOCK ABNORMAL ECG NO PREVIOUS TRACING DOCTOR: Hernesto Alves Interpretating Date/Time 03/12/2017 14:09:57
== END ==
LOC: CPRE 09:22
PROVIDERS: ATTEND Neurological Surgery
DX: Z01.812 Encounter for preprocedural laboratory examination (principal); Z01.811 Encounter for preprocedural respiratory examination; Z01.810 Encounter for preprocedural cardiovascular examination; M43.16 Spondylolisthesis, lumbar region; M43.06 Spondylolysis, lumbar region; M51.36 Other intervertebral disc degeneration, lumbar region; Z79.01 Long term (current) use of anticoagulants; I44.0 Atrioventricular block, first degree
CPT/HCPCS: 36415; 71020; 80053; 81001; 85025; 85610; 85730; 93005